=== PATIENT | female | born 1955 | race Caucasian/White ===

== ENCOUNTER → 2018-05-07 | Outpatient (CLI) | payer BC ==
--- NOTE | 2018-05-07 09:34 | PCVCIMAG ---
EXAM: BILATERAL RENAL ULTRASOUND AND BILATERAL RENAL DUPLEX INDICATION: Hypertension FINDINGS: Right kidney: Length measures 8.6 cm. No hydronephrosis or extensive renal scarring. Right renal duplex: Adequate technical quality. No sonographic evidence of renal artery stenosis. The aortic to renal artery ratio is 1.6. The renal vein is patent. Left kidney: Length measures 9.6 cm. No hydronephrosis or extensive renal scarring. Left renal duplex: Adequate technical quality. No sonographic evidence of renal artery stenosis. The aortic to renal artery ratio is 1.6. The renal vein is patent. Bladder: No obvious abnormalities. IMPRESSION: No significant renal artery stenosis. No hydronephrosis bilaterally. Note is made patient has a prior history of angioplasty for renal artery fibromuscular dysplasia. This is sometimes quite difficult to exclude with renal duplex. LOC:[id number]
== END | disposition home or self-care (01) ==
LOC: PCVCIMAG 08:34
PROVIDERS: ATTEND Nuclear Medicine Nuclear Cardiology
DX: I10 Essential (primary) hypertension (principal)
CPT/HCPCS: 76770; 93975

== ENCOUNTER → 2018-06-05 | Outpatient (CLI) | payer BC ==
[~2018-06-05] MED LIST: DIAZEPAM 10 MG TABLET. ONE; HEPARIN for SUB-Q USE 5,000 UNIT/ML VIAL. SQ ONE; IODIXANOL 270 MG/ML 100 ML VIAL. ONE; IV NORMAL SALINE 500ML BAG 500 ML ONE; LIDOCAINE 1%/EPI 1:100,000 20 ML VIAL. ONE; MIDAZOLAM HCL/PF 2 MG/2 ML VIAL. ONE; NITROGLYCERIN PREMIX 250 ML IV ONE; fentaNYL PF VIAL 100 MCG/2 ML VIAL ONE
--- NOTE | 2018-06-05 15:17 | PCVCINTER ---
EXAM: 1. AORTOGRAM AND BILATERAL ILIOFEMORAL ANGIOGRAM. 2. BILATERAL RENAL ANGIOGRAPHY. 3. RIGHT RENAL ARTERY ANGIOPLASTY. 4. LEFT RENAL ARTERY ANGIOPLASTY. INDICATION: Peripheral arterial disease. Coronary artery disease.Hypertension. Renal atherosclerosis. Renovascular hypertension. Difficult to control blood pressure. Fibromuscular dysplasia causing flow-limiting renal artery stenosis. Malignant hypertension. No prior catheter based angiographic study is available. A full diagnostic angiogram study is performed today and the decision to intervene is based on this diagnostic study. PROCEDURE: Procedure and risks of angiography intervention is appropriate including limb loss stroke and were discussed with the patient's family and consent obtained. The patient's right groin was prepped in the normal sterile fashion. IV conscious sedation was used throughout procedure with appropriate monitoring from 10:45 AM through 11:45 AM. Ultrasound was used to interrogate the right groin and showed the right common femoral artery to be patent. A permanent spot film was obtained. Under ultrasound guidance access into the right common femoral artery was obtained and a 5 Faroese sheath was placed. Through this a 5 Faroese flush catheter was placed into the abdominal aorta at the level of the renal arteries and AP aortogram was performed. Catheter was positioned at the aortic bifurcation and bilateral iliofemoral angiography obtained. Catheter was exchanged for a visceral catheter which was placed into the right renal arteries and right renal angiograms obtained. Catheter was placed into the the left renal arteries and left renal angiograms were obtained. Patient was given 4000 units of heparin. Angioplasty of the right renal artery was carried out with a 6 x 2 Cordis saber CONCENTRATOR OPERATOR catheter. Follow-up angiogram was performed. Angioplasty of the left renal artery was carried out with a 6 x 2 Cordis saber CONCENTRATOR OPERATOR catheter. Follow-up angiogram was performed. Catheters and wires removed. Sheath was removed and hemostasis obtained using the FISH device. No immediate complications. FINDINGS: Aortogram: There is one right and one left renal artery. Minimal plaque infrarenal abdominal aorta. Iliofemoral angiogram: The right and left common and external iliac arteries are patent. Both internal iliac arteries are patent. The right and left common femoral and profunda femoral arteries are patent. The visualized portions of the upper superficial femoral arteries are also patent. Right renal artery: Irregularity mid/distal vessel compatible with fibromuscular dysplasia with areas of webs which appear flow-limiting. Following angioplasty good patency is been restored. Left renal artery: Irregularity mid vessel consistent with fibromuscular dysplasia which appears flow-limiting along its proximal margin of this disease. Following angioplasty good patency is been restored. IMPRESSION: Fibromuscular dysplasia involving the right and left renal artery some which appears flow-limiting was treated with angioplasty with good technical result. LOC:[id number]
== END | disposition home or self-care (01) ==
LOC: PCVCINTER 09:36
PROVIDERS: ATTEND Nuclear Medicine Nuclear Cardiology
DX: I70.1 Atherosclerosis of renal artery (principal); I15.0 Renovascular hypertension; I25.10 Atherosclerotic heart disease of native coronary artery without angina pectoris; I77.3 Arterial fibromuscular dysplasia; I10 Essential (primary) hypertension; I70.0 Atherosclerosis of aorta; F41.9 Anxiety disorder, unspecified; Z85.3 Personal history of malignant neoplasm of breast; Z85.51 Personal history of malignant neoplasm of bladder; M81.0 Age-related osteoporosis without current pathological fracture; E55.9 Vitamin D deficiency, unspecified; Z90.12 Acquired absence of left breast and nipple; Z98.890 Other specified postprocedural states; Z82.49 Family history of ischemic heart disease and other diseases of the circulatory system; Z88.8 Allergy status to other drugs, medicaments and biological substances; Z79.899 Other long term (current) drug therapy
CPT/HCPCS: 36252; 37246; 37247; 75630; 76937; 99152; 99153; C1725; C1751; C1760; C1769; C1887; C1894; J1644; J2250; J3010; J3490; J7040; Q9967; J0690

== ENCOUNTER → 2018-06-10 | Outpatient (CLI) | payer BC ==
--- NOTE | 2018-06-10 13:32 | PCVCIMAG ---
EXAM: BILATERAL CAROTID DUPLEX INDICATION: Syncope. FINDINGS: Doppler Measurements (centimeters per second): RIGHT: Peak CCA-113, Peak ECA-145, Diastolic ICA-32, Peak ICA-101, ICA/CCA Ratio-0.9. LEFT: Peak CCA-116, Peak ECA-112, Diastolic ICA-27, Peak ICA-98, ICA/CCA Ratio-0.8. RIGHT CAROTID: The carotid bulb has no significant plaque. The proximal internal carotid artery shows no significant stenosis. The common carotid artery shows no significant stenosis. The external carotid artery shows no significant stenosis. LEFT CAROTID: The carotid bulb has no significant plaque. The proximal internal carotid artery shows no significant stenosis. The common carotid artery shows no significant stenosis. The external carotid artery shows no significant stenosis. Antegrade flow in both vertebral arteries. IMPRESSION: No significant stenosis of the right internal carotid artery with no significant plaque. No significant stenosis of the left internal carotid artery with no significant plaque. LOC:[id number]
== END | disposition home or self-care (01) ==
LOC: PCVCIMAG 12:52
PROVIDERS: ATTEND Nuclear Medicine Nuclear Cardiology
DX: R55 Syncope and collapse (principal)
CPT/HCPCS: 93880

== ENCOUNTER → 2018-07-08 | Outpatient (CLI) | payer BC ==
--- NOTE | 2018-07-09 10:06 | PCVCIMAG ---
APPROVED REPORT Study performed: 07/08/2018 15:22:44 Exam: Stress Echocardiogram Indication: Syncope Patient Location: Echo lab Stress Nurse: Itzel Parker RN Room #: 1 Status: routine Ht: 5 ft 5 in HR: 72 bpm BP: 164/78 mmHg Rhythm: NSR Medical History Medical History: syncope,, HTN Cardiac Risk Factors: HTN Previous Cardiac Procedures: none Pretest Chest Pain Characteristics: No chest pain Exercise History: Sedentary Procedure The patient underwent an Exercise Stress Test using the Angel Protocol. Blood pressure, heart rate, and EKG were monitored. An Echocardiogram was performed by product safety technician in four stages in quad fashion. At peak stress, four selected images were obtained and placed side by side with resting images for comparison. Stress Test Details Stress Test: Exercise stress testing was performed using a Angel protocol. HR Resting HR: 72 bpmMax Heart Rate (APMHR): 159 bpm Max HR Achieved: 155 bpmTarget HR (85% APMHR): 135 bpm % of APMHR: 97 Recovery HR: 88 bpm HR response to stress: Normal HR response to stress BP Resting BP: 164/78 mmHg Max BP: 180/80 mmHg Recovery BP: 136/76 mmHg BP response to stress: Normal blood pressure response to stress. ECG Resting ECG: Sinus Rhytym Stress ECG: Sinus Rhythm, NSSTT changes ST Change: Nondiagnostic ST abnormalities Arrhythmia: Rare PVCs Recovery ECG: Sinus Rhythm, NSSTT changes Recovery ST Change: Non-ischemic Recovery Arrhythmia: None Clinical Reason for Termination: Maximal effort Stress Symptoms: Fatigue Exercise duration: 5 min 01 sec Highest Stage Achieved: Stage 2: 2.5 mph at 12% grade. Exercise capacity: 7.0 METs Overall Exercise Capacity for Age: Poor Scale: Sedentary Angina Score: None No complications. Stress ECG Conclusion The patient exercised according to the ANGEL protocol for 5:01 mins; achieving a work level of 7.0 METS. The resting heart rate of 72 bpm batool to a maximum heart rate of 155 bpm. This value represents 97 % of the maximal, age-predicted heart rate. The resting blood pressure of 164/78 mmHg, batool to a maximum blood pressure of 180/80 mmHg. The exercise test was stopped due to fatigue. Pre-Stress Echo The resting Echocardiogram showed normal left ventricular contractility with an estimated Ejection Fraction of about 55-60%. Normal wall motion in all segments on baseline images. Post-Stress Echo The stress Echocardiogram showed normal left ventricular contractility with an estimated Ejection Fraction of about 60-65%. Normal augmentation of wall motion in all segments on post stress images. Clinical No clinical or ECG evidence for ischemia. Conclusion Clinical Response: Non-ischemic Exercise Capacity: Below Average Stress ECG Response: Non-ischemic Stress Echo Images: Non-ischemic No clinical, EKG or echocardiographic evidence for ischemia. No echocardiographic evidence for exercise induced ischemia. Normal stress echocardiogram with maximal exercise stress. <Conclusion> No clinical, EKG or echocardiographic evidence for ischemia. No echocardiographic evidence for exercise induced ischemia. Normal stress echocardiogram with maximal exercise stress.
== END | disposition home or self-care (01) ==
LOC: PCVCIMAG 14:54
PROVIDERS: ATTEND Internal Medicine Cardiovascular Disease
DX: R07.89 Other chest pain (principal); R55 Syncope and collapse
CPT/HCPCS: 93325; 93351

== ENCOUNTER → 2018-10-02 | Outpatient (CLI) | payer BC ==
--- NOTE | 2018-10-02 09:18 | PCVCIMAG ---
EXAM: BILATERAL RENAL ULTRASOUND AND BILATERAL RENAL DUPLEX INDICATION: Hypertension. Fibromuscular dysplasia. FINDINGS: Right kidney: Length measures 9.9 cm. No hydronephrosis or extensive renal scarring. Right renal duplex: Adequate technical quality. No sonographic evidence of renal artery stenosis. The aortic to renal artery ratio is 1.2. The renal vein is patent. Left kidney: Length measures 9.0 cm. No hydronephrosis or extensive renal scarring. Left renal duplex: Adequate technical quality. No sonographic evidence of renal artery stenosis. The aortic to renal artery ratio is 1.5. The renal vein is patent. Bladder: No obvious abnormalities. IMPRESSION: No significant renal artery stenosis. No hydronephrosis bilaterally. LOC:[id number]
== END | disposition home or self-care (01) ==
LOC: PCVCIMAG 07:54
PROVIDERS: ATTEND Nuclear Medicine Nuclear Cardiology
DX: I10 Essential (primary) hypertension (principal); Q89.8 Other specified congenital malformations
CPT/HCPCS: 76770; 93975